=== PATIENT | male | born 1945 | race Asian ===

== ENCOUNTER 2017-09-01 08:40 | Day surgery (SDC) | payer MEDICARE, OTHER ==
[~2017-09-01] VITALS: Ht 165.1 cm; Wt 79.5 kg
[~2017-09-01 08:40] MED LIST: AMLO1CAP3 PO; ASPI-1182 PO; ATOR20TA86 PO; LEVO75 PO; SODIUM CHLORIDE 0.9% 1,000 ML IV ONE
[2017-09-01] MEDS ORDERED: LIDOCAINE HCL/PF 2% 5 ML VIAL IM ONE (08:41)
[2017-09-01] MEDS ORDERED: PROPOFOL 1% 20 ML VIAL IVP ONE (08:41)
[2017-09-01] MEDS ORDERED: SODIUM CHLORIDE 0.9% 1,000 ML IV ONE (09:00)
== END 2017-09-01 11:15 | disposition home or self-care (01) ==
LOC: SURGERY 08:40
PROVIDERS: ATTEND Internal Medicine Gastroenterology
DX: K44.9 Diaphragmatic hernia without obstruction or gangrene (principal); K29.50 Unspecified chronic gastritis without bleeding; I10 Essential (primary) hypertension; K21.9 Gastro-esophageal reflux disease without esophagitis; E03.9 Hypothyroidism, unspecified; E66.9 Obesity, unspecified; Z68.29 Body mass index [BMI] 29.0-29.9, adult; Z90.49 Acquired absence of other specified parts of digestive tract; Z79.82 Long term (current) use of aspirin; Z72.89 Other problems related to lifestyle; Z98.42 Cataract extraction status, left eye; Z98.41 Cataract extraction status, right eye; Z79.899 Other long term (current) drug therapy; Z87.891 Personal history of nicotine dependence
CPT/HCPCS: 43239; 88305; 88312; J2704; J3490; J7030